=== PATIENT | male | born 1955 | race Caucasian/White ===

== ENCOUNTER 2016-12-09 19:25 | Emergency (ER) | payer OTHER ==
[2016-12-09 19:49] VITALS: RESP 18
--- NOTE | 2016-12-09 20:12 | UCPHY ---
H & P Patient Type: Established Chief Complaint Nursing Narrative: cough, chest congestion, runny nose, fever, body aches Time Seen by Provider: 12/09/16 20:03 HPI/ROS: Chief Complaint: Cough, fevers, chills HPI: 61-year-old male presenting with 3 days of upper respiratory congestion, cough, chills, fever, body aches. Patient has had a nonproductive cough. Does have some tightness in his chest and a general fatigue. No chest pain. No nausea or vomiting. Mild headache. ROS: 10 point Review of Systems is negative except as noted in the HPI. PMH: Hypertension, obstructive sleep apnea Medications: Lisinopril Allergies: Hydrocodone, oxycodone Social History: No smoking, rare alcohol, no recreational drug use Family History: non-contributory Physical Exam: Gen: Awake, Alert, No Distress HEENT: Nose: no rhinorrhea Eyes: PERRLA, EOMI Mouth: Moist mucosa Neck: Supple, no JVD Chest: nontender, lungs clear to auscultation Heart: S1, S2 normal, no murmur Abd: Soft, non-tender, no guarding Back: no CVA tenderness, no midline tenderness Ext: no edema, non-tender Skin: no rash Neuro: CN II-XII intact, Sensation grossly intact, Strength 5/5 in bilateral upper and lower extremities - Personal History Tetanus Vaccine Date: within ten years - Medical/Surgical History Hx Asthma: No Hx Chronic Respiratory Disease: No Hx Diabetes: No Hx Cardiac Disease: No Hx Renal Disease: No Hx Cirrhosis: No Hx Alcoholism: No Hx HIV/AIDS: No Hx Splenectomy or Spleen Trauma: No Other PMH: htn - Family History Significant Family History: No pertinent family hx - Social History Smoking Status: Never smoked Constitutional: Initial Vital Signs Temperature (C) 38.1 C 12/09/16 19:45 Heart Rate 76 12/09/16 19:45 Respiratory Rate 18 12/09/16 19:45 Blood Pressure 147/82 H 12/09/16 19:45 O2 Sat (%) 97 12/09/16 19:45 O2 Delivery Mode Room Air Allergies/Adverse Reactions: hydrocodone Allergy (Verified 05/05/15 13:24) oxycodone Allergy (Verified 04/13/15 15:30) oxycodone HCl [From OxyContin] Allergy (Verified 04/13/15 15:30) Home Medications: Medication Instructions Recorded Claritin 08/20/14 Lisinopril 08/20/14 AZITHROMYCIN [Z-PACK] 250 mg PO DAILY #6 tab 12/09/16 Medical Decision Making - Diagnostics Imaging Results: Chest x-ray shows a patchy infiltrate at the right base. Imaging: I viewed and interpreted images myself ED Course/Re-evaluation: Patient with likely early community-acquired pneumonia with patchy infiltrate on the right base per my interpretation will start him on azithromycin. He will follow up with primary care physician in 3-4 days if symptoms are not improving. - Data Points Medications Given: Discontinued Medications Ibuprofen (Motrin) 400 mg PO EDNOW ONE Stop: 12/09/16 20:15 Last Admin: 12/09/16 20: Dose: 400 mg Ibuprofen (Motrin) 200 mg PO EDNOW ONE Stop: 12/09/16 20:15 Last Admin: 12/09/16 20: Dose: 200 mg Departure - Departure Disposition: Home, Routine, Self-Care Clinical Impression: Pneumonia Condition: Good Instructions: Community Acquired Pneumonia (ED) Additional Instructions: Please take your full course of antibiotics. Alternate ibuprofen with acetaminophen every 4 hours for fevers, chills, aches, pains. Follow up with primary care physician in 3-4 days if symptoms are not improving. Return to the emergency department for increasing shortness of breath, fevers, chills, or any other concerns. Referrals: NONE *PRIMARY CARE P,. [Primary Care Provider] - As per Instructions Angie Torres MD [[facility] [place]] - As per Instructions Prescriptions: AZITHROMYCIN [Z-PACK] 250 mg PO DAILY #6 tab - PQRS PQRS Measurement: NA
[2016-12-09] MEDS ORDERED: IBUPROFEN 200 MG TAB PO ONE ×2 (20:14)
[2016-12-09] MEDS ORDERED: AZITHROMYCIN 250 MG TAB PO ONE (21:11)
[2016-12-09 21:22] VITALS: TEMP 98.2; O2SAT 94
[2016-12-09 21:38] VITALS: BP 148/84; PULSE 82
== END 2016-12-09 21:31 | disposition home or self-care (01) ==
LOC: CED 19:25
DX: J18.9 Pneumonia, unspecified organism (principal)
CPT/HCPCS: 71020-PO; 99214-PO; G0463-PO